=== PATIENT | male | born 1995 | race American Indian/Alaskan Native ===

== ENCOUNTER 2020-06-19 10:56 | Emergency (ER) | payer BC ==
[2020-06-19 11:32] VITALS: BP 100/54
[2020-06-19] MEDS ORDERED: IBUPROFEN 800 MG TAB PO ONE (12:00)
--- NOTE | 2020-06-19 12:02 | Emergency Department Report ---
ED Lower Extremity HPI - General Chief Complaint: Extremity Injury, Lower Stated Complaint: LEFT LEG PAIN Time Seen by Provider: 06/19/20 11:32 Source: patient Mode of arrival: Ambulatory Limitations: No Limitations - History of Present Illness Initial Comments: 25-year-old male states that he was playing basketball yesterday landed on his left leg and he has been having left lateral lower leg pain. He states the pain is worse when he lies down. He does walk but with a limp. He denies any other injuries. He has a past medical history of bipolar disorder and no other medical complaints Complaint: leg injury Injury: Leg: Left Improves With: nothing Worsens With: palpation, other (pain is worst when is lying down ) Associated Symptoms: ambulatory. denies: snap/pop sensation, swelling, numbness Treatments Prior to Arrival: NSAIDS (Took 1 dose of ibuprofen yesterday) - Related Data Allergies Allergy/AdvReac Type Severity Reaction Status Date / Time No Known Allergies Allergy Unverified 06/19/20 11:27 ED Review of Systems ROS: Stated complaint: LEFT LEG PAIN Other details as noted in HPI Comment: All other systems reviewed and negative Constitutional: no symptoms reported Respiratory: no symptoms reported Cardiovascular: denies: chest pain, palpitations, dyspnea on exertion, orthopnea, edema, syncope, paroxysmal nocturnal dyspnea Endocrine: no symptoms reported Gastrointestinal: denies: abdominal pain, nausea Musculoskeletal: other (Left lower leg pain) Skin: denies: rash, lesions Neurological: denies: headache, paresthesias Psychiatric: denies: anxiety, depression ED Past Medical Hx - Past Medical History Previous Medical History?: Yes Hx Psychiatric Treatment: Yes (Bipolar) - Surgical History Past Surgical History?: Yes Additional Surgical History: Rhinoplasty ED Physical Exam - General Limitations: No Limitations General appearance: alert, in no apparent distress - Head Head exam: Present: atraumatic - Eye Eye exam: Present: normal appearance - ENT ENT exam: Present: normal exam - Neck Neck exam: Present: normal inspection - Respiratory Respiratory exam: Present: normal lung sounds bilaterally - Cardiovascular Cardiovascular Exam: Present: regular rate, normal heart sounds - GI/Abdominal GI/Abdominal exam: Present: soft - Extremities Exam Extremities exam: Present: normal inspection, other (Tenderness noted to the mid lower leg. Skin intact is no swelling noted distal pulses intact) - Neurological Exam Neurological exam: Present: alert, oriented X3 - Psychiatric Psychiatric exam: Present: normal affect - Skin Skin exam: Present: warm, dry, intact, normal color ED Course Vital Signs 06/19/20 11:31 Temperature 98.3 F Pulse Rate 66 Respiratory 20 Rate Blood Pressure 100/54 [Right] O2 Sat by Pulse 96 Oximetry - Reevaluation(s) Reevaluation #1: 06/19/20 12:39 Observed patient sitting awaiting ED Lower Extremity MDM - Radiology Data Radiology results: report reviewed F LEFT TIBIA-FIBULA 2 VIEW(S) INDICATION / CLINICAL INFORMATION: left tib/fib pain COMPARISON: None available. FINDINGS: BONES / JOINT(S): No acute fracture or subluxation. No significant arthritis. SOFT TISSUES: No significant abnormality. ADDITIONAL FINDINGS: None. - Medical Decision Making 25-year-old male complaining of left lower leg up after he landed while playing basketball yesterday. On examination there were no swelling no deformity distal pulses intact. X-ray done there is no fractures or dislocation. Plan to discharge patient home with rice instructions ibuprofen and follow-up as needed - Differential Diagnosis Tib-fib fracture, leg strain contusion Critical Care Time: No Critical care attestation.: If time is entered above; I have spent that time in minutes in the direct care of this critically ill patient, excluding procedure time. ED Disposition Clinical Impression: Muscle strain of left lower leg Qualifiers: Encounter type: initial encounter Qualified Code(s): S86.912A - Strain of unspecified muscle(s) and tendon(s) at lower leg level, left leg, initial encounter Disposition: TO HOME OR SELFCARE Is pt being admited?: No Does the pt Need Aspirin: No Condition: Stable Instructions: Muscle Strain, [id number], How to Use Cold Therapy Additional Instructions: Rest ice and elevate. Take 2 to 3 tablets of [id number] ibuprofen every 6-8 hours as needed for pain. Follow-up with your primary care doctor. Okay to use Luisito wrap for support. The x-ray shows no broken or dislocated bones Referrals: AMALIA LUNDBERG MD [Primary Care Provider] - 3-5 Days STEPHANIE PARRA MD [Staff Physician] - 3-5 Days Time of Disposition: 12:43
--- NOTE | 2020-06-19 12:35 | XRay Report ---
LEFT TIBIA-FIBULA 2 VIEW(S) INDICATION / CLINICAL INFORMATION: left tib/fib pain COMPARISON: None available. FINDINGS: BONES / JOINT(S): No acute fracture or subluxation. No significant arthritis. SOFT TISSUES: No significant abnormality. ADDITIONAL FINDINGS: None. Signer Name: Buzz Harrington MD Signed: 06/19/2020 12:30 PM Workstation Name: [id number]
== END 2020-06-19 13:00 | disposition home or self-care (01) ==
LOC: ED 10:56
DX: S86.912A Strain of unspecified muscle(s) and tendon(s) at lower leg level, left leg, initial encounter (principal); F31.9 Bipolar disorder, unspecified; Z98.890 Other specified postprocedural states; X58.XXXA Exposure to other specified factors, initial encounter; Y93.67 Activity, basketball; Y92.89 Other specified places as the place of occurrence of the external cause; Y99.8 Other external cause status